=== PATIENT | female | born 1985 | race Caucasian/White ===

== ENCOUNTER 2017-06-12 05:51 | Emergency (ER) | payer OTHER ==
[2015-05-12 20:53] VITALS: BP 128/68
--- NOTE | 2017-06-12 06:13 | ED Physician Documentation ---
General Adult - HISTORIAN Historian: patient - HPI Stated Complaint: Sore throat, nausea, vomiting Chief Complaint: General Adult Onset: days ago Timing: still present Severity: moderate Further Comments: yes (Pt is a 31 yo female with a sore throat x 5 days. Pt has had n/v/diarrhea and sinus pain. Pt denies fever.) - ROS CONST: other (malaise) EYES/ENT: sore throat, other (sinus pain) CVS/RESP: none GI/: vomiting, nausea, diarrhea MS/SKIN/LYMPH: none - PAST HX Past History: other (anxiety/depression) Surgeries/Procedures: cholecystectomy, other (tonsils and adenoids) Allergies/Adverse Reactions: Allergies Allergy/AdvReac Type Severity Reaction Status Date / Time No Known Drug Allergies Allergy Verified 06/12/17 06:05 Home Medications: Ambulatory Orders Medication Instructions Recorded Citalopram Hydrobromide [Celexa] 20 mg PO QD 06/12/17 Norgestimate-Ethinyl Estradiol 1 each PO DAILY 06/12/17 [Sprintec 28 Day Tablet] - SOCIAL HX Smoking History: cigarettes Drug Use: marijuana - FAMILY HX Family History: No - VITAL SIGNS Vital Signs: Vital Signs Temp Pulse Resp BP Pulse Ox 97.8 F 90 20 128/68 96 06/12/17 05:55 06/12/17 05:55 06/12/17 05:55 05/12/15 20:50 06/12/17 05:55 - REVIEWED ASSESSMENTS Nursing Assessment Reviewed: Yes Vitals Reviewed: Yes Progress - Progress Progress: Amoxicillin 50 mg po in ER Solu-medrol 125 mg IM in ER Rx Amoxicillin 500 mg. Take one by mouth every 8 hrs for 10 days. Rx Prednisone 50 mg. Take one by mouth once daily for 4 days. Start on 06-13-17. General Adult Physical Exam - PHYSICAL EXAM GENERAL APPEARANCE: moderate distress EENT: eye inspection normal, TM's nml, pharyngeal erythema (swelling), other ( sinus tenderness) NECK: normal inspection, supple, lymphadenopathy RESPIRATORY: no resp distress, chest non-tender, breath sounds normal CVS: reg rate & rhythm, heart sounds normal ABDOMEN: soft, no organomegaly, normal bowel sounds BACK: normal inspection, no CVA tenderness SKIN: warm/dry, normal color EXTREMITIES: non-tender, normal range of motion, no evidence of injury NEURO: oriented X3, motor nml, sensation nml Discharge Clincal Impression: Sinusitis Pharyngitis Qualifiers: Pharyngitis/tonsillitis etiology: unspecified etiology Qualified Code(s): J02.9 - Acute pharyngitis, unspecified Referrals: Mckayla Onofre FNP [Primary Care Provider] - Condition: Good Disposition: 01 HOME, SELF-CARE Decision to Admit: NO Decision Time: 06:38
[2017-06-12] MEDS: methylPREDNISolone SOD SUCC 125 MG/2 ML VIAL IM ONE (06:33)
[2017-06-12] MEDS: AMOXICILLIN 500 MG CAPSULE PO ONE (06:33)
== END 2017-06-12 06:42 | disposition home or self-care (01) ==
LOC: ED 05:51
DX: J02.9 Acute pharyngitis, unspecified (principal)
CPT/HCPCS: 87070; 87880; J2930; 96372; 99282